=== PATIENT | female | born 1995 | race Asian ===

== ENCOUNTER 2020-06-30 08:13 | Emergency (ER) | payer SELFPAY ==
[~2020-06-30] VITALS: Ht 157.5 cm; Wt 58.0 kg
[2020-06-30] MEDS ORDERED: AZIT250T12 MT (08:37)
[2020-06-30 08:48] VITALS: BP 122/84
== END 2020-06-30 08:48 | disposition home or self-care (01) ==
LOC: ER 08:13
DX: J02.0 Streptococcal pharyngitis (principal)
CPT/HCPCS: 99283